=== PATIENT | male | born 1960 | race Caucasian/White ===

== ENCOUNTER 2018-01-19 18:26 | Emergency (ER) | payer BC ==
[~2018-01-19] VITALS: Ht 185.4 cm; Wt 98.7 kg
[2018-01-19 18:37] VITALS: TEMP 36.5; Ht 185.4 cm; Wt 98.7 kg
[2018-01-19] MEDS ORDERED: OXYCODONE HCL IR 5 MG TAB (IMMEDIATE RELEASE) PO STA (18:42)
--- NOTE | 2018-01-19 18:53 | EMERGENCY ROOM VISIT NOTE ---
History Report prepared by Jovon: Ana Maria Thomas Under the Supervision of: Dr. Juan Pablo Hyde D.O. First contact with patient: 18:35 Chief Complaint: FALL Stated Complaint: FELL- HURT SHOULDER History of Present Illness The patient is a 57 year old male who presents to the Emergency Room with complaints of persistent right shoulder pain secondary to a fall that occurred several hours prior to arrival. He reports that he tripped and fell down several carpeted stairs, noting that his right shoulder landed on a piece of cement. The patient denies any loss of consciousness, abdominal pain, back pain , neck pain, headaches, or difficulty walking. 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 Source of History: patient Onset: several hours prior to arrival Position: shoulder (right) Quality: other (shoulder pain) Timing: other (persistent) Associated Symptoms: No LOC, No headache, No neck pain, No abdominal pain, No back pain Note: Patient denies any difficulty walking. Review of Systems See HPI for pertinent positives & negatives. A total of 10 systems reviewed and were otherwise negative. Past Medical & Surgical Medical Problems: (1) Indiahoma's disease (2) Migraine Family History Patient reports no known family medical history. Social History Smoking Status: Never Smoker Smokeless Tobacco Use: No Alcohol Use: none Drug Use: none Occupation Status: employed Current/Historical Medications Scheduled PRN Oxycodone Immediate Rel Tab (Roxicodone Ir), 1-2 TAB PO Q4H PRN for Severe Pain Physical Exam Vital Signs Date Time Temp Pulse Resp B/P (MAP) Pulse Ox O2 Delivery O2 Flow Rate FiO2 01/19/18 19:38 89 20 127/96 98 01/19/18 18:37 36.5 93 20 159/113 99 Physical Exam GENERAL: Patient is awake, alert, and in no acute distress. Patient is resting comfortably and showing no signs of anxiety EYES: The conjunctivae are clear. The pupils are round and reactive. EARS, NOSE, MOUTH AND THROAT: The nose is without any evidence of any deformity. Mucous membranes are moist tongue is midline NECK: The neck is nontender and supple. RESPIRATORY: Normal respiratory effort is noted there is no evidence of wheezing rhonchi or rales CARDIOVASCULAR: Regular rate and rhythm noted there no murmurs rubs or gallops normal S1 normal S2 GASTROINTESTINAL: The abdomen is soft. Bowel sounds are present in all quadrants. Abdomen is nontender BACK: No midline tenderness appreciated. Cervical spine clinically cleared. MUSCULOSKELETAL/EXTREMITIES: Significant swelling and tenderness over right clavicular region that extends to the right trapezius. There is no evidence of gross deformity full range of motion is noted in the hips and shoulders SKIN: There is no obvious evidence of any rash. There are no petechiae, pallor or cyanosis noted. NEUROLOGIC: Patient is awake alert and oriented x3 strength is symmetric patellar reflexes are 2+ bilaterally Medical Decision & Procedures ER Provider Diagnostic Interpretation: Radiology results as stated below per my review and radiologist interpretation: (CHEST) THORAX WITHOUT CT DOSE: 794.21 mGycm HISTORY: right upper chest pain, fall TECHNIQUE: Multiaxial CT images of the chest were performed without contrast. A dose lowering technique was utilized adhering to the principles of ALARA. COMPARISON: None. FINDINGS: No pneumothorax. No pleural effusions. No fractures within the visualized osseous structures. The central airways are patent. The lungs are clear. The visualized liver, spleen, and adrenal glands are unremarkable. No mediastinal or hilar lymphadenopathy. The heart is normal in size. No pericardial effusion. The ascending thoracic aorta measures up to 3.8 cm in diameter. IMPRESSION: No acute abnormality identified within the chest. Electronically signed by: Michael Sanchez M.D. 01/19/2018 7:07 PM Dictated Date/Time: 01/19/2018 7:00 PM Medications Administered Medications (Trade) Dose Ordered Sig/Praveen Route Start Time Stop Time Status Last Admin Dose Admin Oxycodone HCl (Roxicodone Immediate Rel Tab) 5 mg NOW STAT PO 01/19/18 18:42 01/19/18 18:43 DC 01/19/18 19:04 5 MG ED Course 183: The patient was evaluated in room A9. A complete history and physical examination were performed. 1841: Ordered Oxycodone HCl 5mg PO. 1914: Upon reevaluation, the patient is resting comfortably. I discussed the results and treatment plan with him. He verbalized agreement of the treatment plan. The patient was discharged home. Medical Decision Prior records/ancillary studies reviewed. Triage Nursing notes reviewed. The patient's history was concerning for traumatic injury Differential diagnosis: Etiologies such as fracture, dislocation, intra-abdominal, pneumothorax, intrathoracic , intracranial, neurologic, as well as other traumatic pathologies were entertained. The patient is a 57-year-old male who presented to the emergency department after a fall. The patient suffered injury to the right supraclavicular region. He had significant soft tissue swelling in that area. Radiographic studies were obtained but no bony abnormality was noted on the studies. The patient was treated with pain medication in the emergency department. He was reevaluated multiple times. He was encouraged to rest and avoid any strenuous activity. I also encouraged him to call his primary care physician to schedule a follow-up appointment. He was also encouraged to return the emergency department immediately if symptoms change worsen or the need arises. Especially if he were to notice any radicular symptoms such as pain going to the right arm or numbness to the right arm. Medication Reconcilliation Current Medication List: was personally reviewed by me Blood Pressure Screening Patient's blood pressure: Elevated blood pressure Blood pressure disposition: Elevated BP felt to be situational Impression Primary Impression: Fall Additional Impression: Contusion of right shoulder Scribe Attestation The scribe's documentation has been prepared under my direction and personally reviewed by me in its entirety. I confirm that the note above accurately reflects all work, treatment, procedures, and medical decision making performed by me. Departure Information Dispostion Home / Self-Care Prescriptions Oxycodone Immediate Rel Tab (ROXICODONE IR) 5 Mg Tab 1-2 TAB PO Q4H Y for Severe Pain, #20 TAB Prov: Juan Pablo Hyde, DO 01/19/18 Referrals No Doctor, Assigned (PCP) Forms HOME CARE DOCUMENTATION FORM, IMPORTANT VISIT INFORMATION Patient Instructions My [facility] Additional Instructions Continue to use Motrin and Tylenol as directed for pain. Continue all other medications as prescribed. Follow-up with your family doctor this week. Problem Qualifiers Primary Impression: Fall Encounter type: initial encounter Qualified Codes: W19.XXXA - Unspecified fall, initial encounter Additional Impression: Contusion of right shoulder Encounter type: initial encounter Qualified Codes: S40.011A - Contusion of right shoulder, initial encounter
--- NOTE | 2018-01-19 19:08 | DIAGNOSTIC IMAGING REPORT ---
(CHEST) THORAX WITHOUT CT DOSE: 794.21 mGycm HISTORY: right upper chest pain, fall TECHNIQUE: Multiaxial CT images of the chest were performed without contrast. A dose lowering technique was utilized adhering to the principles of ALARA. COMPARISON: None. FINDINGS: No pneumothorax. No pleural effusions. No fractures within the visualized osseous structures. The central airways are patent. The lungs are clear. The visualized liver, spleen, and adrenal glands are unremarkable. No mediastinal or hilar lymphadenopathy. The heart is normal in size. No pericardial effusion. The ascending thoracic aorta measures up to 3.8 cm in diameter. IMPRESSION: No acute abnormality identified within the chest. Electronically signed by: Michael Sanchez M.D. 01/19/2018 7:07 PM Dictated Date/Time: 01/19/2018 7:00 PM
[2018-01-19] MEDS ORDERED: OXYC1TAB3 PO (19:25)
[2018-01-19 19:38] VITALS: BP 127/96; PULSE 89; O2SAT 98
== END 2018-01-19 19:39 | disposition home or self-care (01) ==
LOC: C.EDB 18:27 → C.EDA 19:39
DX: S40.011A Contusion of right shoulder, initial encounter (principal); W10.9XXA Fall (on) (from) unspecified stairs and steps, initial encounter